=== PATIENT | female | born 1980 | race Caucasian/White ===

== ENCOUNTER → 2016-10-07 | Outpatient (CLI) | payer OTHER ==
--- NOTE | 2016-10-07 15:47 | REP ---
MRI left knee without contrast: History: Left knee pain. Popping and snapping sensation. Comparison: MRI study of the left knee is reviewed from [facility] dated October 25, 2010. Comparison left knee radiographs are from October 22, 2010. Technique: Axial, coronal and sagittal imaging planes are utilized for T1, proton density and T2-weighted scans obtained in the usual fashion with and without fat saturation. MRI findings: Cortical and medullary bone signal intensity are normal. There is a small knee joint effusion. No discernible Rodriguez's cyst is seen. 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 There is a linearly oriented full-thickness articular cartilage defect in the medial femoral condyle. This measures 17 mm from anterior to posterior by 3.5 mm from medial to lateral. It is a new finding from the 2011 prior study. There is minimal chondromalacia in the anterior aspect of the medial femoral condyle as well. No other articular cartilage defects are seen. Patellar and quadriceps tendons are intact. Anterior and posterior cruciate ligaments have an intact appearance. There is no evidence of medial or lateral collateral ligament disruption. No medial or lateral meniscal tear is seen. Study is otherwise unremarkable. Impression: Joint effusion. Elongate linear full-thickness cartilage lesion medial femoral condyle. No loose body is appreciated. 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 Signed by Cristian Remy MD 10/07/2016 04:53 P
== END ==
LOC: M RAD 13:00
PROVIDERS: ATTEND Orthopaedic Surgery
DX: M25.462 Effusion, left knee (principal)

== ENCOUNTER → 2017-06-25 | Outpatient (REF) | payer OTHER | LOC: M SFHCLERA 18:24 | PROVIDERS: ATTEND Nurse Practitioner Family | DX: R30.0 Dysuria (principal) ==

== ENCOUNTER → 2018-03-04 | Outpatient (REF) | payer OTHER ==
[2018-03-04 22:25] LABS: CHLAMYDIA DNA AMPLIFICATION NEGATIVE (NEGATIVE); GC DNA AMPLIFICATION NEGATIVE (NEGATIVE)
== END ==
LOC: M SFHCLERA 12:00
DX: R30.0 Dysuria (principal)

== ENCOUNTER → 2019-06-12 | Outpatient (CLI) | payer OTHER ==
--- NOTE | 2019-06-12 18:44 | REP ---
Chest x-ray: Two views. History: Cough. No comparison chest x-ray. Findings: There is a nodular opacity in the left upper lobe measuring 12.5 mm in greatest diameter. This is well circumscribed and may be a calcified granuloma. It is calcific in nature cannot be confidently appreciated. Lung burrows are otherwise clear. Pleural angles are sharp. Heart size is normal. No bony abnormalities seen. Impression: 12 mm nodule left upper lobe may be a granuloma. Further evaluation suggested with chest CT study. Otherwise no acute disease. Electronically Signed by Cristian Remy MD 06/12/2019 06:36 P
== END ==
LOC: M LRY 14:07
PROVIDERS: ATTEND Physician Assistant
DX: R91.1 Solitary pulmonary nodule (principal); R05 Cough
CPT/HCPCS: 71046; G0463